=== PATIENT | male | born 1975 ===

== ENCOUNTER 2017-12-27 13:50 | Emergency (ER) | payer OTHER ==
[2017-12-27 13:55] VITALS: RESP 18
--- NOTE | 2017-12-27 14:21 | C.PDOC ---
History Of Present Illness 42yo male, comes to ER reporting right arm injury sustained 4 days ago. Patient states he accidentally fell off a 1 story height and landed on his right arm. He reports history of prior fracture to the right humerus. Patient reports pain and swelling to the area and reports limited movement. He denies any weakness, numbness and denies any other injuries. CO R ARM INJURY 4 DAYS AGO. PS ACCID FELL OFF 1 STORY HEIGHT, LANDED ON R ARM. HO PRIOR R HUMERUS FX. PAIN, SWELL TO AREA, LIMITED MOVEMENT. DENIE SOTHER SX, INJ EXAM MILD DIST HEENT ATRAUM EXT RUE +SWELL DIF TEND MID ARM. LIMTIED ROM. NO GROSS DEFORM +BRUISING SKIN INTACT NO ERYTHEMA NEURO INTACT REMAINDERNEG Time Seen by Provider: 12/27/17 14:14 Chief Complaint (Nursing): Upper Extremity Problem/Injury History Per: Patient History/Exam Limitations: no limitations Onset/Duration Of Symptoms: Days (4) Current Symptoms Are (Timing): Still Present Quality: "Pain" Past Medical History Reviewed: Historical Data, Nursing Documentation, Vital Signs Vital Signs: Last Vital Signs Temp 99 F 12/27/17 13:52 Pulse 75 12/27/17 13:52 Resp 18 12/27/17 13:52 BP 155/85 H 12/27/17 13:52 Pulse Ox 98 12/27/17 14:59 - Medical History PMH: No Chronic Diseases Other PMH: right humerus fracture Surgical History: No Surg Hx Family History: States: No Known Family Hx - Social History Hx Alcohol Use: No Hx Substance Use: No Review Of Systems Musculoskeletal: Positive for: Arm Pain (right) Neurological: Negative for: Weakness, Numbness Physical Exam - Physical Exam Appears: Other (mild distress) Skin: Normal Color Head: Atraumatic, Normacephalic Eye(s): bilateral: Normal Inspection Nose: Normal Oral Mucosa: Moist Chest: Symmetrical Extremity: No Normal ROM (+ Limited ROM due to pain), Tenderness (diffuse tenderness to right mid arm), No Deformity, Swelling (swelling right mid arm), Other (+ ecchymosis noted to right arm) Neurological/Psych: Oriented x3, Normal Motor, Normal Sensation ED Course And Treatment O2 Sat by Pulse Oximetry: 98 (RA) Pulse Ox Interpretation: Normal Progress Note: Patient given Tylenol and Dilaudid for pain relief. XR Right elbow and humerus ordered. CT Right upper extremity ordered. Disposition Counseled Patient/Family Regarding: Studies Performed, Diagnosis, Need For Followup, Rx Given - Disposition Referrals: YOUR,PMD [Other] Disposition: HOME/ ROUTINE Disposition Time: 16:40 Condition: IMPROVED Prescriptions: Naproxen 500 mg PO BID #30 tab Instructions: Contusion (DC) Forms: [facility] (Yakut), Work Excuse - Clinical Impression Clinical Impression: Arm contusion - Scribe Statement The provider has reviewed the documentation as recorded by the Ivan Moyer Provider Attestation: All medical record entries made by the Ivan were at my direction and personally dictated by me. I have reviewed the chart and agree that the record accurately reflects my personal performance of the history, physical exam, medical decision making, and the department course for this patient. I have also personally directed, reviewed, and agree with the discharge instructions and disposition.
--- NOTE | 2017-12-27 15:06 | RAD ---
PROCEDURE: Radiographs of the right humerus. HISTORY: TRAUMA, history prior humerus fracture. COMPARISON: None available. FINDINGS: BONES: Marked deformity of the midshaft humerus consistent with provided history of remote fracture deformity. No acute displaced fracture appreciated. SOFT TISSUES: Unremarkable. No evidence of radiopaque foreign body. OTHER FINDINGS: None. IMPRESSION: No acute displaced fracture, dislocation, or significant joint effusion identified. If symptoms persist, or if there is continued clinical concern, x-ray follow-up in 7-10 days should be considered.
--- NOTE | 2017-12-27 15:08 | RAD ---
PROCEDURE: Radiographs of the right elbow. HISTORY: TRAUMA COMPARISON: No prior. FINDINGS: BONES: Chronic appearing midshaft humeral fracture deformity. No acute displaced fracture identified. JOINTS: No dislocation. Degenerative changes including joint space narrowing. SOFT TISSUES: Unremarkable. No evidence of radiopaque foreign body. JOINT EFFUSION: No significant joint effusion. OTHER FINDINGS: None IMPRESSION: Chronic appearing midshaft humeral fracture deformity. No acute displaced fracture, dislocation, or significant joint effusion identified. If high clinical index of suspicion, suggest further evaluation with cross-sectional imaging. Otherwise if symptoms persist, or if there is continued clinical concern, x-ray follow-up in 7-10 days should be considered.
--- NOTE | 2017-12-27 16:37 | CT ---
Date of service: 12/27/2017 PROCEDURE: CT: Upper extremity without contrast HISTORY: Trauma to right humerus; fell. History of prior fractures. COMPARISON: No prior CTs. Conventional radiographs same date noted TECHNIQUE: Multiple contiguous axial images were performed through the pertinent without the use of intravenous contrast. Subsequently, sagittal and coronal reformatted images were obtained. Radiation dose: Total exam DLP = 615 mGy-cm. This CT exam was performed using one or more of the following dose reduction techniques: Automated exposure control, adjustment of the mA and/or kV according to patient size, and/or use of iterative reconstruction technique. FINDINGS: Mid shaft right humeral chronic fracture deformity. No acute fracture seen here. Degenerative changes right shoulder and right elbow. 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 No gross right rib fracture seen. IMPRESSION: No acute fracture seen. Mid shaft right humeral chronic fracture deformity. Other findings as above.
[2017-12-27 17:08] VITALS: BP 148/80; PULSE 82; TEMP 98.7; O2SAT 99
== END 2017-12-27 17:08 | disposition home or self-care (01) ==
LOC: C.ER 13:50
DX: S40.021A Contusion of right upper arm, initial encounter (principal); W17.89XA Other fall from one level to another, initial encounter